=== PATIENT | female | born 1990 | race Caucasian/White ===

== ENCOUNTER 2018-02-19 11:12 | Emergency (ER) | payer OTHER ==
[~2018-02-19] VITALS: Ht 160 cm; Wt 80.7 kg
[2018-02-19 11:21] VITALS: BP 106/78
[2018-02-19] MEDS ORDERED: PRENATABS FA T1 EACH PO (11:23)
[2018-02-19] MEDS ORDERED: AMOXICILLIN500 M1 PO (11:39)
== END 2018-02-19 12:15 | disposition home or self-care (01) ==
LOC: M.ERS 11:12
DX: O26.892 Other specified pregnancy related conditions, second trimester (principal); H65.92 Unspecified nonsuppurative otitis media, left ear; Z98.890 Other specified postprocedural states; Z3A.23 23 weeks gestation of pregnancy

== ENCOUNTER 2018-04-27 14:57 | Emergency (ER) | payer OTHER ==
[~2018-04-27] VITALS: Ht 160 cm; Wt 83.5 kg
[~2018-04-27 14:57] MED LIST: AMOXICILLIN500 M1 PO; PRENATABS FA T1 EACH PO
[2018-04-27] MEDS ORDERED: AMOXICILLIN500 M1 PO (15:44)
[2018-04-27 16:12] VITALS: BP 125/68
== END 2018-04-27 16:12 | disposition home or self-care (01) ==
LOC: M.ERS 14:57
DX: O26.893 Other specified pregnancy related conditions, third trimester (principal); K04.7 Periapical abscess without sinus; Z3A.32 32 weeks gestation of pregnancy; Z98.890 Other specified postprocedural states; Z88.7 Allergy status to serum and vaccine